=== PATIENT | female | born 1955 | race Caucasian/White ===

== ENCOUNTER 2018-09-19 10:24 | Emergency (ER) | payer OTHER ==
[2018-09-19 10:37] VITALS: TEMP 98; BMI 31.3
--- NOTE | 2018-09-19 10:44 | PDOC ---
History of Present Illness - General Chief Complaint: Weakness Stated Complaint: WEAKNESS Time Seen by Provider: 09/19/18 10:44 History Source: Patient, Family Exam Limitations: No Limitations - History of Present Illness Initial Comments: 09/19/18 11:16 63 year old female with PMH HTN, HLD, 1 stent (2014) presented to ED for right sided abdominal pain x3 days. She stated the pain began in the middle of the night, was associated with a moment of tingling down her right leg. She was seen by PCP Dr. Encinas Thursday who gave her a prescription for CT abdomen/ pelvis and lab work, which she has not had performed. She has been taking Tylenol for the pain (1 pill) without relief of symptoms. She stated Dr. Encinas told her to come to the ED if her pain did not improve over the weekend , and that is why she came today. She stated her pain is located to the right of her umbilicus, constant, pressure, aggravated by laying flat, alleviated by sitting up, no association with food. Pt denied nausea, vomiting, diarrhea, dysuria, diarrhea, fever, chills. Allergies: NKDA Past History - Past Medical History Allergies/Adverse Reactions: Allergies Allergy/AdvReac Type Severity Reaction Status Date / Time No Known Allergies Allergy Verified 09/19/18 10:37 Home Medications: Ambulatory Orders Aspirin [Ecotrin] 81 mg PO DAILY 07/30/14 Atorvastatin Ca [Lipitor] 80 mg PO HS 07/30/14 Enalapril Maleate [Vasotec -] 20 mg PO BID 07/30/14 Glipizide [Glipizide ER] 2.5 mg PO HS 07/30/14 Amlodipine Besylate [Norvasc -] 10 mg PO DAILY 02/04/18 Carvedilol [Coreg -] 12.5 mg PO BID 02/04/18 Clopidogrel Bisulfate [Plavix] 75 mg PO DAILY 02/04/18 metFORMIN XR [Glucophage Xr -] 1,000 mg PO BID 02/04/18 Anemia: No Asthma: No Cancer: No Cardiac Disorders: Yes COPD: No CHF: No Diabetes: Yes HTN: Yes Hypercholesterolemia: Yes - Surgical History Cardiac Surgery: Yes (cardiac cath) Neurologic Surgery: No Orthopedic Surgery: Yes - Immunization History Immunization Up to Date: Yes - Suicide/Smoking/Psychosocial Hx Smoking History: Never smoked Have you smoked in the past 12 months: No Hx Alcohol Use: No Drug/Substance Use Hx: No Substance Use Type: None Hx Substance Use Treatment: No Review of Systems - Review of Systems Able to Perform ROS?: Yes Comments:: 09/19/18 11:19 General: denied fever, chills, generalized weakness. HEENT: denied sore throat, rhinorrhea, ear pain. Heart: denied chest pain, palpitations, syncope, diaphoresis. Respiratory: denied shortness of breath, cough, sputum production, hemoptysis. Abdomen: admitted to abdominal pain. denied nausea, vomiting, diarrhea, constipation, blood in stool. : denied dysuria, increased urinary frequency, hematuria, urinary incontinence , flank pain. Back: denied back pain. Musculoskeletal: denied joint pain, muscle pain, joint swelling. Neurological: denied headache, dizziness, numbness, tingling, weakness. Skin: denied rash, laceration, abrasion. *Physical Exam - Vital Signs Last Vital Signs Temp Pulse Resp BP Pulse Ox 98 F 69 18 196/67 H 99 09/19/18 10:35 09/19/18 10:35 09/19/18 10:35 09/19/18 10:35 09/19/18 10:35 - Physical Exam Comments: 09/19/18 11:19 Constitutional: Well-nourished, Well-developed, appearing stated age. ambulated to restroom and back unassisted without difficulty. HEENT: head is normocephalic, atraumatic. EOMI. PERRLA. Neck: supple. Full ROM. Heart: regular rhythm. no murmurs, rubs or gallops. Lungs: clear to auscultation bilaterally. no crackles, rhonchi or wheezing. no stridor. Abdomen: soft, nontender. flat. normal bowel sounds. no rebound, guarding, masses. Back: no CVA tenderness bilaterally. Extremities: peripheral pulses intact. no lower extremity edema. Neurological: CN 2-12 grossly intact. moves all four extremities. Psych: awake, alert, oriented x3. follows commands. answers questions appropriately. ED Treatment Course - LABORATORY CBC & Chemistry Diagram: 09/19/18 11:07 09/19/18 11:07 Medical Decision Making - Medical Decision Making 09/19/18 11:20 63 year old female with above PMH presented to ED for abdominal pain. Initial Vital Signs Temp Pulse Resp BP Pulse Ox 98 F 69 18 196/67 H 99 09/19/18 10:35 09/19/18 10:35 09/19/18 10:35 09/19/18 10:35 09/19/18 10:35 Afebrile. No tachycardia. No tachypnea. Hypertensive. No hypoxia on room air. EKG performed at 1405: rate 73, regular rhythm, left axis, flat T in V4/V5, flipped T in III, otherwise no acute EKG changes. Vital Signs Temperature 98 F 09/19/18 10:35 Pulse Rate 70 09/19/18 11:13 Respiratory Rate 16 09/19/18 11:13 Blood Pressure 133/72 09/19/18 11:13 O2 Sat by Pulse Oximetry (%) 99 09/19/18 10:35 Hypertension improved with no treatment, prior reading likely not accurate. Labs ordered: CBC, CMP, lipase, UA/UC Imaging ordered: CT abdomen/pelvis with IV contrast Medications ordered: Tylenol 650 mg PO once, normal saline bolus 1000 cc once 09/19/18 11:44 CBC WBC 8.0 K/mm3 (4.0-10.0) 09/19/18 11:07 RBC 4.74 M/mm3 (3.60-5.2) 09/19/18 11:07 Hgb 12.7 GM/dL (10.7-15.3) 09/19/18 11:07 Hct 37.9 % (32.4-45.2) 09/19/18 11:07 MCV 79.9 fl (80-96) L 09/19/18 11:07 MCH 26.8 pg (25.7-33.7) 09/19/18 11:07 MCHC 33.6 g/dl (32.0-36.0) 09/19/18 11:07 RDW 13.6 % (11.6-15.6) 09/19/18 11:07 Plt Count 219 K/MM3 (134-434) 09/19/18 11:07 MPV 8.8 fl (7.5-11.1) 09/19/18 11:07 Absolute Neuts (auto) 4.7 K/mm3 (1.5-8.0) 09/19/18 11:07 Neutrophils % 59.4 % (42.8-82.8) 09/19/18 11:07 Lymphocytes % 27.2 % (8-40) 09/19/18 11:07 Monocytes % 9.3 % (3.8-10.2) 09/19/18 11:07 Eosinophils % 3.4 % (0-4.5) 09/19/18 11:07 Basophils % 0.7 % (0-2.0) 09/19/18 11:07 Nucleated RBC % 0 % (0-0) 09/19/18 11:07 No leukocytosis. No anemia. 09/19/18 12:03 CMP Sodium 135 mmol/L (136-145) L 09/19/18 11:07 Potassium 4.1 mmol/L (3.5-5.1) 09/19/18 11:07 Chloride 101 mmol/L (98-107) 09/19/18 11:07 Carbon Dioxide 27 mmol/L (21-32) 09/19/18 11:07 Anion Gap 6 MMOL/L (8-16) L 09/19/18 11:07 BUN 18 mg/dL (7-18) 09/19/18 11:07 Creatinine 0.7 mg/dL (0.55-1.3) 09/19/18 11:07 Creat Clearance w eGFR 84.79 (>60) 09/19/18 11:07 Random Glucose 217 mg/dL (74-106) H 09/19/18 11:07 Calcium 9.1 mg/dL (8.5-10.1) 09/19/18 11:07 Total Bilirubin 0.3 mg/dL (0.2-1) 09/19/18 11:07 AST 12 U/L (15-37) L 09/19/18 11:07 ALT 18 U/L (13-61) 09/19/18 11:07 Alkaline Phosphatase 58 U/L (45-117) 09/19/18 11:07 Total Protein 7.6 g/dl (6.4-8.2) 09/19/18 11:07 Albumin 3.7 g/dl (3.4-5.0) 09/19/18 11:07 Lipase 198 U/L (73-393) 09/19/18 11:07 No electrolyte abnormalities. No LC. No transaminitis. Normal lipase. 09/19/18 12:30 Urine Test Results Urine Color Yellow 09/19/18 11:07 Urine Appearance Clear 09/19/18 11:07 Urine pH 5.0 (5.0-8.0) 09/19/18 11:07 Ur Specific Mitchell 1.013 (1.010-1.035) 09/19/18 11:07 Urine Protein Negative (NEGATIVE) 09/19/18 11:07 Urine Glucose (UA) 3+ (NEGATIVE) H 09/19/18 11:07 Urine Ketones Negative (NEGATIVE) 09/19/18 11:07 Urine Blood Negative (NEGATIVE) 09/19/18 11:07 Urine Nitrite Negative (NEGATIVE) 09/19/18 11:07 Urine Bilirubin Negative (NEGATIVE) 09/19/18 11:07 Ur Leukocyte Esterase Negative (NEGATIVE) 09/19/18 11:07 No evidence of UTI. Glucosuria. 09/19/18 14:17 CT report: urinary bladder distension - 500 cc. urinary collecting system and ureter dilation. 09/19/18 14:34 Results discussed with patient and daughter at bedside. Pt stated she had to urinate during the CT scan, and did so afterwards. Post-void residual = 118 cc 09/19/18 14:43 Dr. Encinas paged. 09/19/18 14:[address] Encinas about the patient and the results, she stated she will see the patient in the office next week. Pt discharged. *DC/Admit/Observation/Transfer Diagnosis at time of Disposition: Abdominal pain - Discharge Dispostion Disposition: HOME Condition at time of disposition: Improved Decision to Admit order: No - Referrals Referrals: Erika Encinas [Primary Care Provider] - - Patient Instructions Printed Discharge Instructions: DI for Abdominal Pain-Adult Additional Instructions: You were seen today for abdominal pain. Your blood work was normal. Take Tylenol over the counter for your pain. Take 650 mg every four hours as needed. Your CT showed a large bladder, but this decreased in size after you urinated. You incidentally have a cyst on your spleen and liver, but these are probably not the cause of your pain. I spoke with Dr. Encinas and let her know of the results. Follow up with your primary care doctor in 1-2 days. Bring the paperwork given to you today to your appointment. Return to the Emergency Department for increasing pain despite Tylenol use, vomiting, fever, blood in vomit or stool, chest pain, shortness of breath, lightheadedness like you may pass out, or any other new, worsening or concerning symptoms. - Post Discharge Activity Forms/Work/School Notes: Back to Work
[2018-09-19] MEDS ORDERED: ACETAMINOPHEN 325 MG TABLET (FP) PO ONE (11:06)
[2018-09-19 11:19] LABS: BASO % 0.7 % (0-2.0); EOS % 3.4 % (0-4.5); HEMATOCRIT 37.9 % (32.4-45.2); HEMOGLOBIN 12.7 GM/dL (10.7-15.3); LYMPH % 27.2 % (8-40); MCH 26.8 pg (25.7-33.7); MCHC 33.6 g/dl (32.0-36.0); MEAN CELL VOLUME 79.9 fl (80-96); MEAN PLT VOLUME 8.8 fl (7.5-11.1); MONO % 9.3 % (3.8-10.2); NEUT % 59.4 % (42.8-82.8); PLATELET COUNT 219 K/MM3 (134-434); RBC 4.74 M/mm3 (3.60-5.2); RDW 13.6 % (11.6-15.6)
[2018-09-19] MEDS ORDERED: SODIUM CHLORIDE 1,000 ML IV STA (11:21)
[2018-09-19] MEDS ORDERED: ACETAMINOPHEN 325 MG TABLET (FP) ONE (11:38)
[2018-09-19 11:45] LABS: ALBUMIN 3.7 g/dl (3.4-5.0); ALK PHOS 58 U/L (45-117); ANION GAP 6 MMOL/L (8-16); BILIRUBIN,TOTAL 0.3 mg/dL (0.2-1); BLOOD UREA NITROGEN 18 mg/dL (7-18); CALCIUM 9.1 mg/dL (8.5-10.1); CHLORIDE 101 mmol/L (98-107); CO2 27 mmol/L (21-32); CREATININE 0.7 mg/dL (0.55-1.3); GLUCOSE,RANDOM 217 mg/dL (74-106); LIPASE 198 U/L (73-393); POTASSIUM 4.1 mmol/L (3.5-5.1); SGOT/AST 12 U/L (15-37); SGPT/ALT 18 U/L (13-61); SODIUM 135 mmol/L (136-145); TOT PROT 7.6 g/dl (6.4-8.2)
--- NOTE | 2018-09-19 12:08 | PDOC ---
Attending Attestation - Resident Resident Name: Gogo Gonzalez - ED Attending Attestation I have performed the following: I have examined & evaluated the patient, The case was reviewed & discussed with the resident, I agree w/resident's findings & plan, Exceptions are as noted - HPI HPI: 09/19/18 11:15 63yo F hx HTN, DM, CAD s/p stent presents with 4 days of R sided abd pain. Pt points to right mid abdomen as area where she feels the pain the most. She states the pain is right over the site of an excised lipoma a few years ago. States pain is dull, 3/10, not exacerbated by food. Pt saw Dr. Erika Encinas 2 days ago for pain and was given script for CTAP. Pt denies associated fevers, chills, N/V/D, Cp, SOB, dizziness, focal weakness or numbness. She states she woke up in the middle of the night and felt generally weak at the time but states she did not feel weak this AM/today. No tx tried. No recent travel. Last BM yesterday was normal. Passing flatus. - Physicial Exam PE: 09/19/18 14:57 GENERAL: Awake, alert, and fully oriented, in no acute distress. Very pleasant EYES: PERRLA, EOMI, sclera anicteric, conjunctiva clear ENT: Oropharynx clear without exudates. Moist mucosa NECK: Normal ROM, supple, no lymphadenopathy, JVD, or masses LUNGS: Breath sounds equal, clear to auscultation bilaterally. No wheezes, and no crackles HEART: Regular rate and rhythm, normal S1 and S2, no murmurs, rubs or gallops ABDOMEN: Soft, nontender, normoactive bowel sounds. No guarding, no rebound. No masses. Pt pointing at old healed scar in right mid abdomen as site of pain but is minimally tender in this area. No palpable lipoma or other masses. Negative murphys sign. EXTREMITIES: Normal range of motion, no edema. No cords, erythema, or tenderness NEUROLOGICAL: Normal speech, cranial nerves intact, equal strength and sensation b/l SKIN: Warm, Dry, normal turgor, no rashes or lesions noted. - Medical Decision Making 09/19/18 13:08 63yo F presents to the ED with right mid sided abd pain, 3/10, dull. Vitals initially with elevated bp but on rpt by Dr. Gonzalez on initial eval -> 133/80 Exam with minimal tenderness over R mid abdomen, no rashes DDx includes cholecystitis vs appendicitis vs colitis vs msk pain vs intestinal angina Unlikely cholecystitis as no murphys, pain is not post prandial, no fevers, n/v Unlikely appy as no rlq pain Unlikely colitis as no N/V, fevers Unlikely MSK pain as not reporducible with sitting up or down Unlikely intestinal angina as pain is not worse post prandially, and pain is relatively mild and constant Due to persistent sxs, labs, UA, CTAP ordered. 09/19/18 13:01 Labs/UA unremarkable CTAP with bladder distention, however pt states she needed to void during the study She has since voided, PVR ~100cc per US Otherwise CTAP with no acute findings - no stones in GB, appendix wnl On rpt abd exam, no ttp. Pt is very well appearing All results reviewed with Dr. Encinas, pt to f/u closely within 1-2 days Return precautions given I discussed the physical exam findings, ancillary test results and final diagnoses with the patient. I answered all of the patient's questions. The patient was satisfied with the care received and felt comfortable with the discharge plan and treatment plan. The patient will call their primary care physician within 24 hours to arrange follow-up and will return to the Emergency Department with any new, persistent or worsening symptoms. Heart Score/ECG Review #1 09/19/18 15:12 Twelve-lead EKG was performed and reviewed by me. Normal sinus rhythm, rate 73. Normal axis. No ST elevations
[2018-09-19 12:18] LABS: URINE APPEARANCE CLEAR; URINE BILIRUBIN NEGATIVE (NEGATIVE); URINE COLOR YELLOW; URINE GLUCOSE (UA) 3+ (NEGATIVE); URINE KETONE NEGATIVE (NEGATIVE); URINE LEUK ESTERASE NEGATIVE (NEGATIVE); URINE NITRITE NEGATIVE (NEGATIVE); URINE PROTEIN NEGATIVE (NEGATIVE); URINE UROBILINOGEN 0.2 mg/dL (0.2-1.0)
[2018-09-19 15:04] VITALS: BP 118/80; PULSE 68
--- NOTE | 2018-09-20 10:34 | EKG ---
Test Reason : Blood Pressure : / mmHG Vent. Rate : 068 BPM Atrial Rate : 068 BPM P-R Int : 154 ms QRS Dur : 090 ms QT Int : 408 ms P-R-T Axes : 034 -27 007 degrees QTc Int : 433 ms NORMAL SINUS RHYTHM MODERATE VOLTAGE CRITERIA FOR LVH, MAY BE NORMAL VARIANT NONSPECIFIC T WAVE ABNORMALITY ABNORMAL ECG WHEN COMPARED WITH ECG OF 06-AUG-2014 23:40, NONSPECIFIC T WAVE ABNORMALITY NOW EVIDENT IN ANTERIOR LEADS Confirmed by NAT GARNICA MD ([id number]) on 09/20/2018 10:34:00 AM Referred By: Confirmed By:NAT GARNICA MD
--- NOTE | 2018-09-22 15:24 | EKG ---
Test Reason : Blood Pressure : / mmHG Vent. Rate : 073 BPM Atrial Rate : 073 BPM P-R Int : 152 ms QRS Dur : 090 ms QT Int : 410 ms P-R-T Axes : 046 -29 018 degrees QTc Int : 451 ms NORMAL SINUS RHYTHM VOLTAGE CRITERIA FOR LEFT VENTRICULAR HYPERTROPHY NONSPECIFIC T WAVE ABNORMALITY ABNORMAL ECG WHEN COMPARED WITH ECG OF 19-SEP-2018 10:41, NO SIGNIFICANT CHANGE WAS FOUND Confirmed by DONA MCMILLAN, JUAN ([id number]) on 09/22/2018 3:24:49 PM Referred By: Confirmed By:JUAN CARCAMO MD
== END 2018-09-19 15:08 | disposition home or self-care (01) ==
LOC: JER 10:24
PROC: 3E0337Z Introduction of Electrolytic and Water Balance Substance into Peripheral Vein, Percutaneous Approach (ICD-10-PCS; principal; 2018-09-19)
DX: R10.9 Unspecified abdominal pain (principal); I25.10 Atherosclerotic heart disease of native coronary artery without angina pectoris; I10 Essential (primary) hypertension; Z95.5 Presence of coronary angioplasty implant and graft; E11.9 Type 2 diabetes mellitus without complications; Z79.84 Long term (current) use of oral hypoglycemic drugs; E78.00 Pure hypercholesterolemia, unspecified
CPT/HCPCS: 36415; 74177-TC; 80053; 81003; 83690; 85025; 87086; 93005; 93010; 99283-25; J7030